=== PATIENT | female | born 1950 | race Caucasian/White ===

== ENCOUNTER 2017-08-19 21:41 | Emergency (ER) | payer MEDICARE ==
--- NOTE | 2017-08-19 21:59 | EDM.PDOC ---
ED HPI GENERAL MEDICAL PROBLEM - General Chief Complaint: Lower Extremity Injury/Pain Stated Complaint: FELL Time Seen by Provider: 08/19/17 21:53 - History of Present Illness INITIAL COMMENTS - FREE TEXT/NARRATIVE: HISTORY AND PHYSICAL: History of present illness: Patient's a 66-year-old female with history of Alzheimer's or presents with concern of fall she injured her knee she denies any other trauma or concern there is no reported head or neck pain or trauma Review of systems: As per history of present illness and below otherwise all systems reviewed and negative. Past medical history: As per history of present illness and as reviewed below otherwise noncontributory. Surgical history: As per history of present illness and as reviewed below otherwise noncontributory. Social history: No reported history of drug or alcohol abuse. Family history: As per history of present illness and as reviewed below otherwise noncontributory. Physical exam: HEENT: Atraumatic, normocephalic, pupils reactive, negative for conjunctival pallor or scleral icterus, mucous membranes moist, throat clear, neck supple, nontender, trachea midline. Lungs: Clear to auscultation, breath sounds equal bilaterally, chest nontender. Heart: S1S2, regular, negative for clicks, rubs, or JVD. Abdomen: Soft, nondistended, nontender. Negative for masses or hepatosplenomegaly. Negative for costovertebral tenderness. Pelvis: Stable nontender. Genitourinary: Deferred. Rectal: Deferred. Extremities: Right knee is a small hematoma over the patella crepitation of point tenderness joint is grossly stable and there is no effusion noted Neuro: Awake, alert, oriented. Cranial nerves II through XII unremarkable. Cerebellum unremarkable. Motor and sensory unremarkable throughout. Exam nonfocal. Diagnostics: X-ray right knee Therapeutics: None Impression: #1 right knee injury Definitive disposition and diagnosis as appropriate pending reevaluation and review of above. right knee Pain Score (Numeric/FACES): 5 - Related Data Allergies Allergy/AdvReac Type Severity Reaction Status Date / Time No Known Allergies Allergy Verified 08/19/17 23:17 Home Meds: Home Meds Calcium Carbonate [Calcium] 500 mg PO DAILY 08/07/17 [History] Donepezil HCl 10 mg PO DAILY 08/07/17 [History] FLUoxetine HCl [Fluoxetine HCl] 40 mg PO DAILY 08/07/17 [History] Memantine [Namenda] 10 mg PO DAILY 08/07/17 [History] valACYclovir HCl [Valtrex] 500 mg PO DAILY 08/07/17 [History] Past Medical History Neurological History: Reports: Alzheimers Disease Social & Family History - Family History Family Medical History: Noncontributory - Caffeine Use Caffeine Use: Reports: None Review of Systems - Review of Systems Review Of Systems: ROS reveals no pertinent complaints other than HPI. ED EXAM, GENERAL - Physical Exam Exam: See Below (The dictation) Course - Vital Signs Last Recorded V/S: Last Vital Signs Temp 36.6 C 08/19/17 21:41 Pulse 54 L 08/19/17 22:25 Resp 12 08/19/17 22:25 BP 125/70 08/19/17 22:25 Pulse Ox 95 08/19/17 22:25 - Orders/Labs/Meds Orders: Active Orders 24 hr Category Date Time Status Knee 3V Rt [CR] Stat Exams 08/19/17 21:52 Taken Departure - Departure Time of Disposition: 05:16 Disposition: Home, Self-Care 01 Clinical Impression: Knee injury, Contusion - Discharge Information Instructions: Contusion, Qwms-cm-[id number] Referrals: PCP,None [Primary Care Provider] - Forms: ED Department Discharge - My Orders Last 24 Hours: My Active Orders 08/19/17 21:52 Knee 3V Rt [CR] Stat - Assessment/Plan Last 24 Hours: My Active Orders 08/19/17 21:52 Knee 3V Rt [CR] Stat
--- NOTE | 2017-08-20 15:34 | CR ---
EXAM DATE: 08/19/17 PATIENT'S AGE: 66 Patient: BETH YATES Facility: [place], [place] Site . Site : 1950 Study: XRay Knee Right [id number]/[id number] 10:20:38 PM Ordering Physician: Doctor Albert Final Report: INDICATION: Knee injury. COMPARISON: None. FINDINGS/IMPRESSION: Right knee, 3 views. Anterior soft tissue thickening consistent with edema and/or fluid within the prepatellar bursa. No fracture identified. Normal osseous alignment. Preservation of knee joint spaces. No evidence of joint effusion in the suprapatellar bursa. Dictated by Maximus Nicole MD @ 08/19/2017 10:27:17 PM Dictated by: Maximus Nicole MD @ 08/19/2017 22:27:53 (Electronic Signature) Report Signed by Proxy. REINIER
== END 2017-08-19 22:25 | disposition home or self-care (01) ==
LOC: MW.ED 21:41
DX: S80.01XA Contusion of right knee, initial encounter (principal); G30.9 Alzheimer's disease, unspecified; F02.80 Dementia in other diseases classified elsewhere, unspecified severity, without behavioral disturbance, psychotic disturbance, mood disturbance, and anxiety; Z79.899 Other long term (current) drug therapy; W19.XXXA Unspecified fall, initial encounter
CPT/HCPCS: 73562-26-RT; 73562-RT; 99283